=== PATIENT | male | born 1945 | race Caucasian/White ===

== ENCOUNTER 2018-09-24 12:43 | Inpatient (IN) | payer MEDICARE, OTHER ==
[~2018-09-24] VITALS: Ht 170.2 cm; Wt 68.3 kg
[2018-09-24] MEDS ORDERED: ondansetron/PF 4mg/2ml inj IV ONE (12:50)
[2018-09-24] MEDS ORDERED: TETanus/Pertussis (Acell)/Diphther VAC/PF (Tdap-Adult) 0.5ml syringe IM ONE (12:50)
[2018-09-24] MEDS: morphine 4 MG/ML inj SYRINge IV PRN ×2 (12:58→15:00)
--- NOTE | 2018-09-24 13:08 | NUR ---
PT'S LEFT CALF MUSCLES ARE SPASMING AND LEFT FOOT IS CRAMPING SOME. CALF IS STILL SOFT WHEN PALPATED.
--- NOTE | 2018-09-24 13:46 | NUR ---
LAB AT BEDSIDE RE-DRAWING CBC/DIFF DUE TO LAB NOTING PT A "CLUMPER" AND FIBRINOGIN RESULTS SHOULD BE READY IN 5-10 MIN
[2018-09-24 13:49] LABS: BASOPHILS # (AUTO) 0.1 X10'3 (0-0.2); BASOPHILS % (AUTO) 0.5 % (0-1); EOSINOPHILS % (AUTO) 0.2 % (0-6); HEMATOCRIT 42.5 % (42.0-52.0); HEMOGLOBIN 14.5 g/dl (14.0-17.9); LYMPHOCYTES # (AUTO) 2.1 X10'3 (1.1-4.8); LYMPHOCYTES % (AUTO) 15.2 % (21-51); MEAN CORPUSCULAR HEMOGLOBIN 30.8 PG (27.0-31.0); MEAN CORPUSCULAR HGB CONC 34.1 g/dL (33.0-36.5); MEAN CORPUSCULAR VOLUME 90.2 FL (78-98); MONOCYTES # (AUTO) 1.1 X10'3 (0-0.9); MONOCYTES % (AUTO) 8.1 % (2-12); NEUTROPHILS # (AUTO) 10.3 X10'3 (1.8-7.7); RED BLOOD COUNT 4.72 X10'6 (4.70-6.10); RED CELL DISTRIBUTION WIDTH 13.4 % (11.5-14.5); WHITE BLOOD COUNT 13.5 X10'3 (4.5-11.0)
[2018-09-24 14:10] LABS: PLATELET COUNT 37 X10'3 (140-440)
[2018-09-24] MEDS ORDERED: DOXY100C43 PO (14:16)
[2018-09-24] MEDS ORDERED: DIPH25CA83 PO (14:16)
--- NOTE | 2018-09-24 14:19 | NUR ---
VISIBLE SPASMING OBSERVED TO LEFT CALF. PATIENT REPORTS REDUCTION IN PAIN, REFUSED MORPHINE AND REPORTS IMPROVEMENT IN LEFT LEG MOBILITY.
[2018-09-24 14:32] LABS: PLATELET ESTIMATE DECREASED
[2018-09-24 14:33] LABS: BURR CELLS 3+
--- NOTE | 2018-09-24 14:34 | NUR ---
SPOKE WITH PHARMACIST REGARDING Antivenin, pharmacist states to monitor PT, PTT, and fibrinogen closely.
[2018-09-24] MEDS ORDERED: antivenin, crotalidae fab inj 6 VIAL in normal saline 250ml IV soln 250 ML IV SCH ×2 (15:00)
[2018-09-24] MEDS ORDERED: HYDROcodone/acetaminophen 10/325mg tab PO ONE (15:00)
[2018-09-24 15:17] LABS: ALANINE AMINOTRANSFERASE 36 U/L (12-78); ALBUMIN 3.8 G/DL (3.4-5.0); ALBUMIN/GLOBULIN RATIO 0.9 (1.1-1.5); ALKALINE PHOSPHATASE 55 IU/L (46-116); ANION GAP 14 (8-16); ASPARTATE AMINO TRANSFERASE 29 U/L (10-37); BILIRUBIN,TOTAL 1.2 MG/DL (0.1-1.0); BLOOD UREA NITROGEN 24 MG/DL (7-18); CALCIUM 9.6 MG/DL (8.5-10.1); CHLORIDE 106 MMOL/L (99-107); CREATININE 1.26 MG/DL (0.60-1.10); GLUCOSE 110 MG/DL (70-104); POTASSIUM 3.6 MMOL/L (3.5-5.1); SODIUM 141 MMOL/L (135-145); TOTAL CARBON DIOXIDE 21.3 MMOL/L (24-32); TOTAL PROTEIN 7.9 G/DL (6.4-8.2); eGFR 56 ML/MIN
[2018-09-24 15:29] LABS: CKMB RELATIVE INDEX 1.5 RATIO (0-2.5); CREATINE KINASE 127 U/L (39-308)
[2018-09-24] MEDS: antivenin, crotalidae fab inj 2 VIAL in normal saline 250ml IV soln 250 ML IV SCH ×10 (15:33→20:51)
--- NOTE | 2018-09-24 15:44 | NUR ---
STARTED INFUSION AT 25 ML/HR FOR FIRST 15 MINUTES PER PHARMACY RECOMMENDATION. MONITORING FOR ANY SIGNS/SYMPTOMS OF ALLERGIC REACTION.
--- NOTE | 2018-09-24 15:46 | NUR ---
INCREASED ERYTHEMA TO LEFT CALF. INCREASED PAIN ON PALPATION, INTERMITTENT MUSCLE SPASMS. PAIN RATED 5/10 PAIN.
[2018-09-24] MEDS ORDERED: morphine 4 MG/ML inj SYRINge IV PRN (16:45)
[2018-09-24] MEDS ORDERED: sodium phosphate inj. 15 MMOL in dextrose 5%-water 150 ML IV PRN (16:45)
[2018-09-24] MEDS ORDERED: morphine 2 MG/ML inj. syringe IV PRN (16:45)
[2018-09-24] MEDS ORDERED: magnesium 4gm in 100ml NS 100 ML IV PRN (16:45)
[2018-09-24] MEDS ORDERED: ondansetron/PF 4mg/2ml inj IV PRN (16:45)
[2018-09-24] MEDS ORDERED: acetaminophen 325mg tablet PO PRN ×2 (16:45)
[2018-09-24] MEDS ORDERED: potassium Cl 20 mEq SR tablet PO PRN ×2 (16:45)
[2018-09-24] MEDS ORDERED: sodium phosphate inj. 30 MMOL in dextrose 5%-water 250 ML IV PRN (16:45)
[2018-09-24] MEDS ORDERED: magnesium 2GM in 50ml NS 50 ML IV PRN (16:45)
[2018-09-24] MEDS ORDERED: magnesium Cl slow-release 64mg tablet PO PRN (16:45)
[2018-09-24] MEDS ORDERED: Neutra Phos packet PO PRN (16:45)
[2018-09-24] MEDS ORDERED: magnesium hydroxide 30ml (MOM) UD suspension PO PRN (16:45)
--- NOTE | 2018-09-24 17:26 | NUR ---
HOSPITALIST OKAYED TO GIVE PATIENT WATER AND ENSURE.
[2018-09-24 19:00] VITALS: BP 152/87
[2018-09-24 19:12] LABS: BASOPHILS # (AUTO) 0.1 X10'3 (0-0.2); BASOPHILS % (AUTO) 0.7 % (0-1); EOSINOPHILS % (AUTO) 0.1 % (0-6); HEMATOCRIT 41.2 % (42.0-52.0); LYMPHOCYTES # (AUTO) 1.4 X10'3 (1.1-4.8); LYMPHOCYTES % (AUTO) 8.6 % (21-51); MEAN CORPUSCULAR HGB CONC 33.9 g/dL (33.0-36.5); MEAN CORPUSCULAR VOLUME 91.6 FL (78-98); MEAN PLATELET VOLUME 9.3 FL (7.4-10.4); MONOCYTES # (AUTO) 1.9 X10'3 (0-0.9); MONOCYTES % (AUTO) 11.7 % (2-12); NEUTROPHILS # (AUTO) 12.9 X10'3 (1.8-7.7); NEUTROPHILS % (AUTO) 78.9 % (42-75); PLATELET COUNT 231 X10'3 (140-440); RED CELL DISTRIBUTION WIDTH 13.1 % (11.5-14.5); WHITE BLOOD COUNT 16.3 X10'3 (4.5-11.0)
[2018-09-24 19:42] LABS: D-DIMER 1.45 MG/L FEU (0-0.50); INR 1.2 INR; PARTIAL THROMBOPLASTIN TIME 24 SECONDS (22-32); PLATELET COUNT 231 X10'3 (140-440)
[2018-09-24 20:00] VITALS: BP 145/70
[2018-09-24] MEDS: docusate sod 100mg capsule PO SCH (20:00)
[2018-09-24] MEDS: normal saline 1000ml 1,000 ML IV SCH (20:54)
[2018-09-24 21:00] VITALS: BP 129/78
[2018-09-24] MEDS ORDERED: DOXYCYCLINE 100MG CAPSULE PO STA (21:15)
[2018-09-24 22:00] VITALS: BP 112/54
[2018-09-24 23:00] VITALS: BP 111/50
[2018-09-25] VITALS (16 sets, daily range): BP systolic 99–142; BP diastolic 51–73
[2018-09-25] MEDS: antivenin, crotalidae fab inj 2 VIAL in normal saline 250ml IV soln 250 ML IV SCH ×2 (00:48)
[2018-09-25 00:52] LABS: BASOPHILS # (AUTO) 0.1 X10'3 (0-0.2); BASOPHILS % (AUTO) 0.4 % (0-1); EOSINOPHILS % (AUTO) 0 % (0-6); HEMATOCRIT 38.3 % (42.0-52.0); HEMOGLOBIN 12.8 g/dl (14.0-17.9); LYMPHOCYTES # (AUTO) 1.4 X10'3 (1.1-4.8); MEAN CORPUSCULAR HGB CONC 33.4 g/dL (33.0-36.5); MEAN CORPUSCULAR VOLUME 92.9 FL (78-98); MEAN PLATELET VOLUME 9.3 FL (7.4-10.4); MONOCYTES # (AUTO) 1.2 X10'3 (0-0.9); MONOCYTES % (AUTO) 9.2 % (2-12); NEUTROPHILS # (AUTO) 10.2 X10'3 (1.8-7.7); NEUTROPHILS % (AUTO) 79.4 % (42-75); PLATELET COUNT 229 X10'3 (140-440); RED BLOOD COUNT 4.12 X10'6 (4.70-6.10); RED CELL DISTRIBUTION WIDTH 13.5 % (11.5-14.5); WHITE BLOOD COUNT 12.8 X10'3 (4.5-11.0)
[2018-09-25 01:23] LABS: D-DIMER 0.98 MG/L FEU (0-0.50); INR 1.2 INR; PARTIAL THROMBOPLASTIN TIME 21 SECONDS (22-32); PLATELET COUNT 229 X10'3 (140-440)
[2018-09-25] MEDS: normal saline 1000ml 1,000 ML IV SCH (06:01)
[2018-09-25 06:26] LABS: BASOPHILS % (AUTO) 0.4 % (0-1); EOSINOPHILS # (AUTO) 0.1 X10'3 (0-0.9); EOSINOPHILS % (AUTO) 0.8 % (0-6); HEMATOCRIT 37.6 % (42.0-52.0); HEMOGLOBIN 12.6 g/dl (14.0-17.9); LYMPHOCYTES # (AUTO) 2.2 X10'3 (1.1-4.8); LYMPHOCYTES % (AUTO) 21.7 % (21-51); MEAN CORPUSCULAR HEMOGLOBIN 31.1 PG (27.0-31.0); MEAN CORPUSCULAR HGB CONC 33.6 g/dL (33.0-36.5); MEAN CORPUSCULAR VOLUME 92.7 FL (78-98); MEAN PLATELET VOLUME 9.4 FL (7.4-10.4); MONOCYTES # (AUTO) 1.3 X10'3 (0-0.9); MONOCYTES % (AUTO) 12.1 % (2-12); NEUTROPHILS # (AUTO) 6.7 X10'3 (1.8-7.7); PLATELET COUNT 219 X10'3 (140-440); RED BLOOD COUNT 4.06 X10'6 (4.70-6.10); RED CELL DISTRIBUTION WIDTH 13.4 % (11.5-14.5); WHITE BLOOD COUNT 10.4 X10'3 (4.5-11.0)
[2018-09-25 06:41] LABS: ANION GAP 6 (8-16); BLOOD UREA NITROGEN 24 MG/DL (7-18); CHLORIDE 111 MMOL/L (99-107); CREATININE 1.15 MG/DL (0.60-1.10); GLUCOSE 110 MG/DL (70-104); SODIUM 142 MMOL/L (135-145); TOTAL CARBON DIOXIDE 25.4 MMOL/L (24-32)
[2018-09-25 06:42] LABS: ALANINE AMINOTRANSFERASE 29 U/L (12-78); ALBUMIN 2.7 G/DL (3.4-5.0); ALBUMIN/GLOBULIN RATIO 0.8 (1.1-1.5); ALKALINE PHOSPHATASE 45 IU/L (46-116); ASPARTATE AMINO TRANSFERASE 37 U/L (10-37); BUN/CREATININE RATIO 20.9 (5.4-32.0); CALCIUM 8.4 MG/DL (8.5-10.1); MAGNESIUM 1.9 MG/DL (1.5-2.4); PHOSPHORUS 3.4 MG/DL (2.3-4.5); TOTAL PROTEIN 6.3 G/DL (6.4-8.2); eGFR 63 ML/MIN
[2018-09-25 06:47] LABS: D-DIMER 0.96 MG/L FEU (0-0.50); INR 1.2 INR; PARTIAL THROMBOPLASTIN TIME 24 SECONDS (22-32)
[2018-09-25 07:03] LABS: PLATELET COUNT 219 X10'3 (140-440)
[2018-09-25] MEDS ORDERED: pantoprazole 40mg Tablet.DR PO SCH (07:30)
[2018-09-25] MEDS: docusate sod 100mg capsule PO SCH (07:58)
[2018-09-25] MEDS ORDERED: DOXYCYCLINE 100MG CAPSULE PO SCH (08:30)
--- NOTE | 2018-09-25 09:27 | NUR ---
Physical Therapy is working with pt
--- NOTE | 2018-09-25 12:06 | NUR ---
Lab in room drawing sample
[2018-09-25 12:30] LABS: BASOPHILS % (AUTO) 0.1 % (0-1); EOSINOPHILS # (AUTO) 0.1 X10'3 (0-0.9); EOSINOPHILS % (AUTO) 1.3 % (0-6); HEMATOCRIT 37.5 % (42.0-52.0); HEMOGLOBIN 12.7 g/dl (14.0-17.9); LYMPHOCYTES % (AUTO) 21.4 % (21-51); MEAN CORPUSCULAR HEMOGLOBIN 31.1 PG (27.0-31.0); MEAN CORPUSCULAR HGB CONC 33.8 g/dL (33.0-36.5); MEAN PLATELET VOLUME 9.4 FL (7.4-10.4); MONOCYTES # (AUTO) 1.1 X10'3 (0-0.9); MONOCYTES % (AUTO) 11.6 % (2-12); NEUTROPHILS # (AUTO) 6.2 X10'3 (1.8-7.7); NEUTROPHILS % (AUTO) 65.6 % (42-75); PLATELET COUNT 239 X10'3 (140-440); RED BLOOD COUNT 4.07 X10'6 (4.70-6.10); RED CELL DISTRIBUTION WIDTH 13.7 % (11.5-14.5); WHITE BLOOD COUNT 9.5 X10'3 (4.5-11.0)
[2018-09-25 12:47] LABS: PLATELET COUNT 219 X10'3 (140-440)
[2018-09-25 13:03] LABS: INR 1.1 INR; PARTIAL THROMBOPLASTIN TIME 24 SECONDS (22-32)
[2018-09-25 13:04] LABS: D-DIMER 1.48 MG/L FEU (0-0.50)
--- NOTE | 2018-09-25 15:55 | NUR ---
Pt given dc instructions. IV removed, tip intact. Pt will follow up with pcp as appointed. Pt assisted to POV in WC with walker from [facility]. All pt property with pt. Pt was noted to have minimal swelling to his wound site, but did have redness to his left thigh which was marked with a marker.
[2018-09-25] MEDS ORDERED: lactobacillus rhamnosus 10,000 MMU CELLS/CAPSULE PO SCH (20:00)
== END 2018-09-25 16:07 | disposition home or self-care (01) | DRG 917 ==
LOC: ER 12:44 → ICU 2S 18:01 → CMPBEDREQ 19:49
PROVIDERS: ADMIT Internal Medicine Critical Care Medicine; ATTEND Internal Medicine Critical Care Medicine
DX: T63.011A Toxic effect of rattlesnake venom, accidental (unintentional), initial encounter (principal); D65 Disseminated intravascular coagulation [defibrination syndrome]; N17.9 Acute kidney failure, unspecified; L03.116 Cellulitis of left lower limb; D69.6 Thrombocytopenia, unspecified; H66.90 Otitis media, unspecified, unspecified ear; Z85.46 Personal history of malignant neoplasm of prostate; Z79.899 Other long term (current) drug therapy; Y92.89 Other specified places as the place of occurrence of the external cause
CPT/HCPCS: 36415; 80053; 82550; 82553; 83605; 83735; 84100; 84145; 85025; 85379; 85384; 85610; 85730; 90471; 90715; 96374; 96375; 97116; 97161; 99291; G0378; J0840; J2270; J2405; J7030